=== PATIENT | male | born 1945 | race African-American/Black ===

== ENCOUNTER 2024-10-18 10:43 | Emergency (ER) | payer SELFPAY ==
[~2024-10-18] VITALS: Ht 175.3 cm; Wt 77.0 kg
[2024-10-18 10:45] VITALS: BP 97/57; PULSE 70; RESP 16; TEMP 36.8; O2SAT 99
[2024-10-18] MEDS ORDERED: MORPHINE SULFATE 4 MG/ML INJ (FOR IV/IM USE) IV STA (10:53)
== END 2024-10-18 11:41 | disposition left against medical advice (07) ==
LOC: ER 10:43
DX: M79.671 Pain in right foot (principal); M79.672 Pain in left foot; E11.9 Type 2 diabetes mellitus without complications; I10 Essential (primary) hypertension; I51.9 Heart disease, unspecified; N28.9 Disorder of kidney and ureter, unspecified; Z88.6 Allergy status to analgesic agent; Z99.2 Dependence on renal dialysis
CPT/HCPCS: 99283; Z7610 ×3; A4606; J2270